=== PATIENT | male | born 1930 | race Caucasian/White ===

== ENCOUNTER 2021-03-01 15:48 | Inpatient (IN) | payer MEDICARE, BC ==
[~2021-03-01 15:48] MED LIST: Iopamidol 370 76% 100 ML VIAL ONE
[2021-03-01 16:55] LABS: #Eosinphils 0.5 thou/uL (0.0-0.7); #Lymphocytes 2.9 thou/uL (1.20-3.40); #Monocytes 1.1 thou/uL (0.11-0.59); #Neutrophils 6.8 thou/uL (1.40-6.50); %Basophils 0.2 % (0.0-1.0); %Eosinophils 4.2 % (0.0-10.0); %Lymphocytes 25.6 % (21.0-51.0); %Monocytes 9.7 % (0.0-10.0); %Neutrophils 60.3 % (42.0-75.0); Hemoglobin 12.9 g/dL (14.0-18.0); Mean Corpuscular HGB CONC 32.1 g/dL (32.0-36.0); Mean Corpuscular Hemoglobin 28.8 pg (27.0-31.0); Mean Corpuscular Volume 89.6 fL (78.0-98.0); Mean Platelet Volume 7.8 fL (7.4-10.4); Platelet Count 263 thou/uL (130-400); RBC Distribution Width 14.2 % (11.5-14.5); Red Blood Cell (RBC) Count 4.47 mill/uL (4.70-6.10); White Blood Cell (WBC) Count 11.4 thou/uL (4.8-10.8)
[2021-03-01 17:12] LABS: ALT (SGPT) Less than 7 U/L (8-55); AST (SGOT) 15 U/L (5-34); Alkaline Phosphatase 121 U/L (40-110); Anion Gap 16 mmol/L (10-20); BUN (Urea Nitrogen) 33 mg/dL (8.4-25.7); Bilirubin, Total 0.4 mg/dL (0.2-1.2); CK (CPK) 113 U/L (30-200); Calc. Creatinine Clearance 0 mL/min (70-130); Calcium 9.3 mg/dL (7.8-10.44); Carbon Dioxide 22 mmol/L (23-31); Chloride 104 mmol/L (98-107); Globulin 3.8 g/dL (2.4-3.5); Glucose 123 mg/dL (83-110); Magnesium 1.7 mg/dL (1.6-2.6); Potassium 4.4 mmol/L (3.5-5.1); Protein, Total 7.8 g/dL (5.8-8.1); Sodium 138 mmol/L (136-145)
[2021-03-01] MEDS ORDERED: Aspirin Chewable 81 MG TAB ONE (17:41)
[2021-03-01] MEDS ORDERED: Enoxaparin Sodium 100 MG/ML SYRINGE ONE (17:41)
[2021-03-01] MEDS ORDERED: cefTRIAXone\\ROCEPHIN 2 GM VIAL ONE (17:41)
[2021-03-01 17:43] LABS: CKMB 4.3 ng/mL (0-6.6)
[2021-03-01 18:22] LABS: Bacteria/HPF None Seen HPF (None Seen); Bilirubin Negative (Negative); Blood, Urine Negative (Negative); Clarity Clear (Clear); Glucose, Urine (Dipstick) Normal (Negative); Ketone, Urine Negative (Negative); Leukocyte Negative Leu/uL (Negative); Nitrite Negative (Negative); Protein, Urine (Dipstick) 30 mg/dL (Neg-Trace); RBC/HPF 0-3 HPF (0-3); Specific Gravity, Urine 1.026 (1.002-1.036); Squamous Epithelial 0-3 HPF (0-3); Urobilinogen Normal mg/dL (Less than 2); WBC/HPF 0-3 HPF (0-3)
[2021-03-01] MEDS ORDERED: Ondansetron PF 4 MG/2 ML Vial IVP PRN (20:16)
[2021-03-01] MEDS ORDERED: Dextrose 50% Abboject 50 ML SYRINGE SLOW IVP PRN (20:18)
[2021-03-01] MEDS ORDERED: Dextrose 5% in Water 1,000 ML IV PRN (20:18)
[2021-03-01] MEDS ORDERED: Aspirin 81 mg Enteric Coated Tablet PO SCH (20:45)
[2021-03-01 20:52] LABS: Critical Call Chem Troponin I RESULT DECREASING; Troponin I 1.127 ng/mL (< 0.028)
[2021-03-01] MEDS: Sodium Chloride 0.9% 1,000 ML IV SCH (22:59)
[2021-03-01 23:18] LABS: Critical Call Chem Troponin I 2NO.TB1; Troponin I 1.012 ng/mL (< 0.028)
[2021-03-02 03:03] LABS: SARS-CoV-2 NAA Rapid Test Not Detected (NotDetected)
[2021-03-02] MEDS ORDERED: Enoxaparin Sodium 120 MG/0.8 ML SYRINGE SC SCH ×2 (06:00→09:00)
[2021-03-02 06:50] LABS: #Basophils 0.1 thou/uL (0.0-0.2); #Eosinphils 0.6 thou/uL (0.0-0.7); #Lymphocytes 2.7 thou/uL (1.20-3.40); #Neutrophils 4.1 thou/uL (1.40-6.50); %Basophils 0.9 % (0.0-1.0); %Lymphocytes 32.4 % (21.0-51.0); %Monocytes 11.4 % (0.0-10.0); %Neutrophils 48.3 % (42.0-75.0); Hemoglobin 11.2 g/dL (14.0-18.0); Mean Corpuscular HGB CONC 32.4 g/dL (32.0-36.0); Mean Corpuscular Hemoglobin 29.4 pg (27.0-31.0); Mean Corpuscular Volume 90.7 fL (78.0-98.0); Mean Platelet Volume 8.2 fL (7.4-10.4); Platelet Count 183 thou/uL (130-400); RBC Distribution Width 14.3 % (11.5-14.5); Red Blood Cell (RBC) Count 3.83 mill/uL (4.70-6.10); White Blood Cell (WBC) Count 8.4 thou/uL (4.8-10.8)
[2021-03-02 07:12] LABS: Anion Gap 15 mmol/L (10-20); BUN (Urea Nitrogen) 30 mg/dL (8.4-25.7); Calc. Creatinine Clearance 55 mL/min (70-130); Calcium 8.5 mg/dL (7.8-10.44); Carbon Dioxide 19 mmol/L (23-31); Chloride 107 mmol/L (98-107); Glucose 135 mg/dL (83-110); Potassium 4.4 mmol/L (3.5-5.1); Sodium 137 mmol/L (136-145)
[2021-03-02] MEDS ORDERED: Pravastatin Sodium 40 MG TAB PO SCH (09:00)
[2021-03-02] MEDS ORDERED: Dofetilide 0.25 MG CAP PO SCH (09:00)
[2021-03-02] MEDS ORDERED: IRBESARTAN 75 MG PO SCH (09:00)
[2021-03-02] MEDS: Sodium Chloride 0.9% 1,000 ML IV SCH (09:15)
[2021-03-02] MEDS: Dofetilide 0.125 MG CAP PO SCH ×2 (09:17→19:55)
[2021-03-02] MEDS: Potassium Chloride 20 MEQ TAB PO SCH (09:17)
[2021-03-02] MEDS: Aspirin 81 mg Enteric Coated Tablet PO SCH (09:18)
[2021-03-02] MEDS: Atorvastatin Calcium 10 MG TAB PO SCH (09:18)
[2021-03-02] MEDS: Donepezil HCl 5 MG TAB PO SCH (09:18)
[2021-03-02] MEDS: Furosemide 40 MG TAB PO SCH ×2 (09:18→19:56)
[2021-03-02] MEDS: Levothyroxine Sodium 25 MCG TAB PO SCH (09:18)
[2021-03-02] MEDS: Losartan 25 MG TAB PO SCH (09:18)
[2021-03-02] MEDS: Spironolactone 25 MG TAB PO SCH (09:19)
[2021-03-02] MEDS: Clopidogrel Bisulfate 75 MG TAB PO SCH (09:19)
[2021-03-02] MEDS: Budesonide 0.5 MG/2 ML NEB NEB SCH (19:16)
[2021-03-02] MEDS: Acetaminophen 325 MG TAB PO PRN (19:56)
[2021-03-03 05:01] LABS: #Eosinphils 0.5 thou/uL (0.0-0.7); #Lymphocytes 2.6 thou/uL (1.20-3.40); #Monocytes 0.8 thou/uL (0.11-0.59); #Neutrophils 3.4 thou/uL (1.40-6.50); %Basophils 0.6 % (0.0-1.0); %Eosinophils 6.6 % (0.0-10.0); %Monocytes 11.3 % (0.0-10.0); %Neutrophils 46.5 % (42.0-75.0); Hemoglobin 11.6 g/dL (14.0-18.0); Mean Corpuscular HGB CONC 33.7 g/dL (32.0-36.0); Mean Platelet Volume 7.9 fL (7.4-10.4); Platelet Count 189 thou/uL (130-400); RBC Distribution Width 14.2 % (11.5-14.5); Red Blood Cell (RBC) Count 3.87 mill/uL (4.70-6.10); White Blood Cell (WBC) Count 7.3 thou/uL (4.8-10.8)
[2021-03-03 05:22] LABS: Anion Gap 14 mmol/L (10-20); BUN (Urea Nitrogen) 21 mg/dL (8.4-25.7); Calc. Creatinine Clearance 68 mL/min (70-130); Calcium 9.1 mg/dL (7.8-10.44); Carbon Dioxide 22 mmol/L (23-31); Chloride 106 mmol/L (98-107); Glucose 105 mg/dL (83-110); Potassium 3.7 mmol/L (3.5-5.1); Sodium 138 mmol/L (136-145)
[2021-03-03] MEDS ORDERED: Electrolyte Replacement Protocol 1 EACH FS PRN (08:15)
[2021-03-03] MEDS: Losartan 25 MG TAB PO SCH (08:24)
[2021-03-03] MEDS: Donepezil HCl 5 MG TAB PO SCH (08:24)
[2021-03-03] MEDS: Furosemide 40 MG TAB PO SCH ×2 (08:24→20:06)
[2021-03-03] MEDS: Potassium Chloride 20 MEQ TAB PO SCH (08:24)
[2021-03-03] MEDS: Clopidogrel Bisulfate 75 MG TAB PO SCH (08:25)
[2021-03-03] MEDS: Atorvastatin Calcium 10 MG TAB PO SCH (08:25)
[2021-03-03] MEDS: Aspirin 81 mg Enteric Coated Tablet PO SCH (08:25)
[2021-03-03] MEDS: Levothyroxine Sodium 25 MCG TAB PO SCH (08:25)
[2021-03-03] MEDS: Dofetilide 0.125 MG CAP PO SCH ×2 (08:25→20:06)
[2021-03-03] MEDS: Spironolactone 25 MG TAB PO SCH (08:25)
[2021-03-03] MEDS: Budesonide 0.5 MG/2 ML NEB NEB SCH ×2 (10:47→19:03)
[2021-03-03] MEDS ORDERED: Magnesium Sulfate 4 GM in Sodium Chloride 0.9% 250 ML 250 ML IVPB SCH (12:00)
[2021-03-03] MEDS ORDERED: Vancomycin 1 GM in Premix Bag 1 BAG IVPB SCH (12:00)
[2021-03-03] MEDS: Cefepime 1 GM in Sodium Chloride 0.9% 100 ML IVPB SCH (12:26)
[2021-03-03] MEDS: VANCOMYCIN 1.75 GM/350 ML BAG 1.75 GM in Premix Bag 1 BAG IVPB SCH (13:46)
[2021-03-04] MEDS: Cefepime 1 GM in Sodium Chloride 0.9% 100 ML IVPB SCH ×2 (00:25→12:34)
[2021-03-04 04:47] LABS: #Basophils 0.1 thou/uL (0.0-0.2); #Eosinphils 0.6 thou/uL (0.0-0.7); #Lymphocytes 2.4 thou/uL (1.20-3.40); #Monocytes 0.8 thou/uL (0.11-0.59); #Neutrophils 3.7 thou/uL (1.40-6.50); %Basophils 1.1 % (0.0-1.0); %Lymphocytes 31.4 % (21.0-51.0); %Neutrophils 48.6 % (42.0-75.0); Hemoglobin 12.7 g/dL (14.0-18.0); Mean Corpuscular HGB CONC 33.2 g/dL (32.0-36.0); Mean Corpuscular Hemoglobin 29.6 pg (27.0-31.0); Platelet Count 215 thou/uL (130-400); Red Blood Cell (RBC) Count 4.29 mill/uL (4.70-6.10); White Blood Cell (WBC) Count 7.6 thou/uL (4.8-10.8)
[2021-03-04 04:59] LABS: Phosphorus 3.1 mg/dL (2.3-4.7)
[2021-03-04 05:02] LABS: Anion Gap 17 mmol/L (10-20); BUN (Urea Nitrogen) 17 mg/dL (8.4-25.7); Calc. Creatinine Clearance 72 mL/min (70-130); Calcium 9.7 mg/dL (7.8-10.44); Carbon Dioxide 22 mmol/L (23-31); Chloride 103 mmol/L (98-107); Glucose 124 mg/dL (83-110); Potassium 3.8 mmol/L (3.5-5.1); Sodium 138 mmol/L (136-145)
[2021-03-04] MEDS: Budesonide 0.5 MG/2 ML NEB NEB SCH ×2 (07:37→19:41)
[2021-03-04] MEDS: Potassium Chloride 20 MEQ TAB PO SCH (08:33)
[2021-03-04] MEDS: Aspirin 81 mg Enteric Coated Tablet PO SCH (08:33)
[2021-03-04] MEDS: Dofetilide 0.125 MG CAP PO SCH ×2 (08:33→20:37)
[2021-03-04] MEDS: Levothyroxine Sodium 25 MCG TAB PO SCH (08:33)
[2021-03-04] MEDS: Atorvastatin Calcium 10 MG TAB PO SCH (08:34)
[2021-03-04] MEDS: Donepezil HCl 5 MG TAB PO SCH (08:34)
[2021-03-04] MEDS: Clopidogrel Bisulfate 75 MG TAB PO SCH (08:34)
[2021-03-04] MEDS: Spironolactone 25 MG TAB PO SCH (08:34)
[2021-03-04] MEDS: Furosemide 40 MG TAB PO SCH ×2 (08:34→20:37)
[2021-03-04] MEDS: Losartan 25 MG TAB PO SCH (08:36)
[2021-03-04] MEDS ORDERED: Magnesium 2 GM/50 ML 2 GM in Premix Bag 1 BAG IVPB SCH (08:45)
[2021-03-04] MEDS: HumaLOG 300 UNITS/3 ML VIAL SC PRN (12:33)
[2021-03-04] MEDS: VANCOMYCIN 1.75 GM/350 ML BAG 1.75 GM in Premix Bag 1 BAG IVPB SCH (13:23)
[2021-03-05] MEDS: Cefepime 1 GM in Sodium Chloride 0.9% 100 ML IVPB SCH ×2 (01:27→12:26)
[2021-03-05 04:25] LABS: #Eosinphils 0.7 thou/uL (0.0-0.7); #Lymphocytes 2.7 thou/uL (1.20-3.40); #Monocytes 1.2 thou/uL (0.11-0.59); #Neutrophils 4.9 thou/uL (1.40-6.50); %Basophils 0.5 % (0.0-1.0); %Eosinophils 7.6 % (0.0-10.0); %Lymphocytes 28.4 % (21.0-51.0); %Monocytes 12.3 % (0.0-10.0); %Neutrophils 51.3 % (42.0-75.0); Hemoglobin 13.2 g/dL (14.0-18.0); Mean Corpuscular HGB CONC 32.8 g/dL (32.0-36.0); Mean Corpuscular Hemoglobin 29.1 pg (27.0-31.0); Mean Corpuscular Volume 88.7 fL (78.0-98.0); Mean Platelet Volume 8.1 fL (7.4-10.4); Platelet Count 259 thou/uL (130-400); RBC Distribution Width 14.1 % (11.5-14.5); Red Blood Cell (RBC) Count 4.55 mill/uL (4.70-6.10); White Blood Cell (WBC) Count 9.5 thou/uL (4.8-10.8)
[2021-03-05 04:48] LABS: ALT (SGPT) Less than 7 U/L (8-55); AST (SGOT) 12 U/L (5-34); Albumin 3.9 g/dL (3.4-4.8); Alkaline Phosphatase 118 U/L (40-110); Anion Gap 15 mmol/L (10-20); BUN (Urea Nitrogen) 21 mg/dL (8.4-25.7); Bilirubin, Total 0.5 mg/dL (0.2-1.2); CRP (Inflammatory) 1.12 mg/dL (= or < 0.5); Calc. Creatinine Clearance 56 mL/min (70-130); Calcium 10.1 mg/dL (7.8-10.44); Carbon Dioxide 25 mmol/L (23-31); Chloride 102 mmol/L (98-107); Globulin 3.9 g/dL (2.4-3.5); Glucose 161 mg/dL (83-110); Magnesium 1.9 mg/dL (1.6-2.6); Potassium 3.6 mmol/L (3.5-5.1); Protein, Total 7.8 g/dL (5.8-8.1); Sodium 138 mmol/L (136-145)
[2021-03-05] MEDS ORDERED: Magnesium 2 GM/50 ML 2 GM in Premix Bag 1 BAG IVPB SCH (06:30)
[2021-03-05] MEDS: Budesonide 0.5 MG/2 ML NEB NEB SCH ×2 (07:55→19:14)
[2021-03-05] MEDS: Aspirin 81 mg Enteric Coated Tablet PO SCH (09:38)
[2021-03-05] MEDS: Clopidogrel Bisulfate 75 MG TAB PO SCH (09:38)
[2021-03-05] MEDS: Dofetilide 0.125 MG CAP PO SCH ×2 (09:38→21:16)
[2021-03-05] MEDS: Atorvastatin Calcium 10 MG TAB PO SCH (09:38)
[2021-03-05] MEDS: Potassium Chloride 20 MEQ TAB PO SCH (09:39)
[2021-03-05] MEDS: Losartan 25 MG TAB PO SCH (09:39)
[2021-03-05] MEDS: Levothyroxine Sodium 25 MCG TAB PO SCH (09:39)
[2021-03-05] MEDS: Spironolactone 25 MG TAB PO SCH (09:39)
[2021-03-05] MEDS: Donepezil HCl 5 MG TAB PO SCH (09:39)
[2021-03-05] MEDS: Furosemide 40 MG TAB PO SCH ×2 (09:39→21:16)
[2021-03-05] MEDS: Sodium Chloride 0.9% 1,000 ML IV SCH (12:26)
[2021-03-05 13:31] LABS: Vancomycin, Trough 13.5 ug/mL
[2021-03-05] MEDS ORDERED: VANCOMYCIN 2 GRAM/400 ML BAG 2 GM in Premix Bag 1 BAG IVPB SCH (14:00)
[2021-03-05] MEDS: VANCOMYCIN 1.75 GM/350 ML BAG 1.75 GM in Premix Bag 1 BAG IVPB SCH (14:18)
[2021-03-06] MEDS: Cefepime 1 GM in Sodium Chloride 0.9% 100 ML IVPB SCH (01:47)
[2021-03-06] MEDS: Sodium Chloride 0.9% 1,000 ML IV SCH (01:48)
[2021-03-06 04:38] LABS: #Basophils 0.1 thou/uL (0.0-0.2); #Eosinphils 0.9 thou/uL (0.0-0.7); #Lymphocytes 3.2 thou/uL (1.20-3.40); #Monocytes 1.3 thou/uL (0.11-0.59); #Neutrophils 5.3 thou/uL (1.40-6.50); %Basophils 0.5 % (0.0-1.0); %Eosinophils 8.8 % (0.0-10.0); %Lymphocytes 29.8 % (21.0-51.0); %Monocytes 11.8 % (0.0-10.0); %Neutrophils 49.2 % (42.0-75.0); Hemoglobin 13.4 g/dL (14.0-18.0); Mean Corpuscular HGB CONC 32.7 g/dL (32.0-36.0); Mean Corpuscular Hemoglobin 29.3 pg (27.0-31.0); Mean Corpuscular Volume 89.5 fL (78.0-98.0); Mean Platelet Volume 8.1 fL (7.4-10.4); Platelet Count 240 thou/uL (130-400); RBC Distribution Width 14.1 % (11.5-14.5); Red Blood Cell (RBC) Count 4.58 mill/uL (4.70-6.10); White Blood Cell (WBC) Count 10.8 thou/uL (4.8-10.8)
[2021-03-06] MEDS: Budesonide 0.5 MG/2 ML NEB NEB SCH ×2 (07:24→19:43)
[2021-03-06] MEDS ORDERED: Fentanyl 100 MCG/2 ML VIAL ONE (08:48)
[2021-03-06] MEDS ORDERED: PHENYLEPHRINE-NS 100 MCG/ML 10 ML SYRINGE ONE (08:53)
[2021-03-06] MEDS ORDERED: Lidocaine 1% PF 5 ML VIAL ONE (08:53)
[2021-03-06] MEDS ORDERED: Ondansetron PF 4 MG/2 ML Vial ONE (08:53)
[2021-03-06] MEDS ORDERED: PROPOFOL 200 MG/20 ML VIAL ONE (08:53)
[2021-03-06] MEDS ORDERED: Ibuprofen 600 MG TAB PO PRN (09:19)
[2021-03-06] MEDS ORDERED: Acetaminophen ER (8hr) 650 MG TAB PO ONE (12:32)
[2021-03-06] MEDS ORDERED: VANCOMYCIN 2 GRAM/400 ML BAG 2 GM in Premix Bag 1 BAG IVPB SCH (14:00)
[2021-03-06] MEDS: traMADol HCl 50 MG TAB PO PRN (14:01)
[2021-03-06] MEDS: Aspirin 81 mg Enteric Coated Tablet PO SCH (14:04)
[2021-03-06] MEDS: Atorvastatin Calcium 10 MG TAB PO SCH (14:05)
[2021-03-06] MEDS: Clopidogrel Bisulfate 75 MG TAB PO SCH (14:05)
[2021-03-06] MEDS: Dofetilide 0.125 MG CAP PO SCH ×2 (14:05→22:22)
[2021-03-06] MEDS: Donepezil HCl 5 MG TAB PO SCH (14:05)
[2021-03-06] MEDS: Levothyroxine Sodium 25 MCG TAB PO SCH (14:06)
[2021-03-06] MEDS: Losartan 25 MG TAB PO SCH (14:06)
[2021-03-06] MEDS: Furosemide 40 MG TAB PO SCH ×2 (14:06→22:22)
[2021-03-06] MEDS: Potassium Chloride 20 MEQ TAB PO SCH (14:06)
[2021-03-06] MEDS: Spironolactone 25 MG TAB PO SCH (14:07)
[2021-03-06 15:05] LABS: Albumin 3.7 g/dL (3.4-4.8)
[2021-03-06 15:06] LABS: Chloride 104 mmol/L (98-107); Sodium 139 mmol/L (136-145)
[2021-03-06 15:08] LABS: Globulin 3.7 g/dL (2.4-3.5); Glucose 186 mg/dL (83-110); Protein, Total 7.4 g/dL (5.8-8.1)
[2021-03-06 15:09] LABS: Anion Gap 16 mmol/L (10-20); Carbon Dioxide 23 mmol/L (23-31)
[2021-03-06 15:10] LABS: Bilirubin, Total 0.4 mg/dL (0.2-1.2)
[2021-03-06 15:11] LABS: Alkaline Phosphatase 112 U/L (40-110); Calc. Creatinine Clearance 50 mL/min (70-130)
[2021-03-06 15:12] LABS: BUN (Urea Nitrogen) 26 mg/dL (8.4-25.7)
[2021-03-06 15:13] LABS: AST (SGOT) 11 U/L (5-34)
[2021-03-06 15:14] LABS: ALT (SGPT) Less than 7 U/L (8-55)
[2021-03-07] MEDS: traMADol HCl 50 MG TAB PO PRN ×3 (05:09→21:02)
[2021-03-07] MEDS: Budesonide 0.5 MG/2 ML NEB NEB SCH ×2 (07:43→19:28)
[2021-03-07] MEDS: Aspirin 81 mg Enteric Coated Tablet PO SCH (08:38)
[2021-03-07] MEDS: Dofetilide 0.125 MG CAP PO SCH ×2 (08:39→20:51)
[2021-03-07] MEDS: Clopidogrel Bisulfate 75 MG TAB PO SCH (08:39)
[2021-03-07] MEDS: Atorvastatin Calcium 10 MG TAB PO SCH (08:39)
[2021-03-07] MEDS: Levothyroxine Sodium 25 MCG TAB PO SCH (08:40)
[2021-03-07] MEDS: Losartan 25 MG TAB PO SCH (08:40)
[2021-03-07] MEDS: Furosemide 40 MG TAB PO SCH (08:40)
[2021-03-07] MEDS: Donepezil HCl 5 MG TAB PO SCH (08:40)
[2021-03-07] MEDS: Spironolactone 25 MG TAB PO SCH (08:41)
[2021-03-07] MEDS: Potassium Chloride 20 MEQ TAB PO SCH (08:41)
[2021-03-07] MEDS: HumaLOG 300 UNITS/3 ML VIAL SC PRN (11:43)
[2021-03-08] MEDS: Budesonide 0.5 MG/2 ML NEB NEB SCH ×2 (07:00→18:31)
[2021-03-08 07:50] LABS: Anion Gap 15 mmol/L (10-20); BUN (Urea Nitrogen) 33 mg/dL (8.4-25.7); Calc. Creatinine Clearance 59 mL/min (70-130); Calcium 9.6 mg/dL (7.8-10.44); Carbon Dioxide 25 mmol/L (23-31); Chloride 103 mmol/L (98-107); Glucose 138 mg/dL (83-110); Potassium 4.5 mmol/L (3.5-5.1); Sodium 138 mmol/L (136-145)
[2021-03-08] MEDS: Levothyroxine Sodium 25 MCG TAB PO SCH (08:51)
[2021-03-08] MEDS: Losartan 25 MG TAB PO SCH (08:51)
[2021-03-08] MEDS: Furosemide 40 MG TAB PO SCH ×2 (08:51→21:13)
[2021-03-08] MEDS: Dofetilide 0.125 MG CAP PO SCH ×2 (08:51→21:11)
[2021-03-08] MEDS: Atorvastatin Calcium 10 MG TAB PO SCH (08:51)
[2021-03-08] MEDS: Donepezil HCl 5 MG TAB PO SCH (08:51)
[2021-03-08] MEDS: Clopidogrel Bisulfate 75 MG TAB PO SCH (08:51)
[2021-03-08] MEDS: Potassium Chloride 20 MEQ TAB PO SCH (08:52)
[2021-03-08] MEDS: Aspirin 81 mg Enteric Coated Tablet PO SCH (08:52)
[2021-03-08] MEDS: Spironolactone 25 MG TAB PO SCH (08:52)
[2021-03-08 09:21] VITALS: BMI 31.7
[2021-03-08] MEDS: HumaLOG 300 UNITS/3 ML VIAL SC PRN (11:33)
[2021-03-08] MEDS: Acetaminophen 325 MG TAB PO PRN (13:30)
[2021-03-08] MEDS: traMADol HCl 50 MG TAB PO PRN (21:17)
[2021-03-09 03:56] VITALS: TEMP 97.7
[2021-03-09] MEDS: Budesonide 0.5 MG/2 ML NEB NEB SCH (07:48)
[2021-03-09 08:14] VITALS: BP 134/63
[2021-03-09] MEDS: Donepezil HCl 5 MG TAB PO SCH (08:59)
[2021-03-09] MEDS: Atorvastatin Calcium 10 MG TAB PO SCH (08:59)
[2021-03-09] MEDS: Spironolactone 25 MG TAB PO SCH (08:59)
[2021-03-09] MEDS: Losartan 25 MG TAB PO SCH (08:59)
[2021-03-09] MEDS: Clopidogrel Bisulfate 75 MG TAB PO SCH (08:59)
[2021-03-09] MEDS: Furosemide 40 MG TAB PO SCH (08:59)
[2021-03-09] MEDS: Potassium Chloride 20 MEQ TAB PO SCH (09:00)
[2021-03-09] MEDS: Aspirin 81 mg Enteric Coated Tablet PO SCH (09:00)
[2021-03-09] MEDS: Dofetilide 0.125 MG CAP PO SCH (09:00)
[2021-03-09] MEDS: Levothyroxine Sodium 25 MCG TAB PO SCH (09:09)
== END 2021-03-09 14:25 | disposition home health service (06) | DRG 616 ==
LOC: ERS 15:48 → 2NO 20:06
PROVIDERS: ADMIT Internal Medicine; ATTEND Internal Medicine
PROC: 5A09357 Assistance with Respiratory Ventilation, Less than 24 Consecutive Hours, Continuous Positive Airway Pressure (ICD-10-PCS; 2021-03-01)
PROC: 0Y6T0Z1 Detachment at Right 3rd Toe, High, Open Approach (ICD-10-PCS; principal; 2021-03-06)
DX: E11.69 Type 2 diabetes mellitus with other specified complication (principal); I21.A1 Myocardial infarction type 2; G93.41 Metabolic encephalopathy; I13.0 Hypertensive heart and chronic kidney disease with heart failure and stage 1 through stage 4 chronic kidney disease, or unspecified chronic kidney disease; I50.42 Chronic combined systolic (congestive) and diastolic (congestive) heart failure; M86.8X7 Other osteomyelitis, ankle and foot; E83.42 Hypomagnesemia; N17.9 Acute kidney failure, unspecified; I48.0 Paroxysmal atrial fibrillation; Z66 Do not resuscitate; Z96.659 Presence of unspecified artificial knee joint; F03.90 Unspecified dementia, unspecified severity, without behavioral disturbance, psychotic disturbance, mood disturbance, and anxiety; I25.10 Atherosclerotic heart disease of native coronary artery without angina pectoris; G47.33 Obstructive sleep apnea (adult) (pediatric); E11.51 Type 2 diabetes mellitus with diabetic peripheral angiopathy without gangrene; N18.30 Chronic kidney disease, stage 3 unspecified; D63.1 Anemia in chronic kidney disease; E78.5 Hyperlipidemia, unspecified; E11.621 Type 2 diabetes mellitus with foot ulcer; M25.571 Pain in right ankle and joints of right foot; J44.9 Chronic obstructive pulmonary disease, unspecified; L97.519 Non-pressure chronic ulcer of other part of right foot with unspecified severity; N18.31 Chronic kidney disease, stage 3a; E66.9 Obesity, unspecified; Z68.31 Body mass index [BMI] 31.0-31.9, adult; Z88.1 Allergy status to other antibiotic agents; Z88.0 Allergy status to penicillin; Z88.2 Allergy status to sulfonamides; Z88.8 Allergy status to other drugs, medicaments and biological substances; Z78.1 Physical restraint status; Z86.73 Personal history of transient ischemic attack (TIA), and cerebral infarction without residual deficits; Z95.1 Presence of aortocoronary bypass graft; Z95.5 Presence of coronary angioplasty implant and graft; Z95.828 Presence of other vascular implants and grafts; Z89.421 Acquired absence of other right toe(s); Z79.899 Other long term (current) drug therapy; Z79.82 Long term (current) use of aspirin; Z79.51 Long term (current) use of inhaled steroids; Z79.890 Hormone replacement therapy; Z79.84 Long term (current) use of oral hypoglycemic drugs
CPT/HCPCS: 0240U; 36415; 36416; 51701; 70450; 70551; 71045; 71275; 80048; 80053; 80202; 81003; 81015; 82140; 82550; 82553; 83605; 83735; 83880; 84100; 84443; 84484; 85025; 86140; 87040; 87086; 87635; 88305; 88311; 93005; 93306; 94640; 96365; 96372; J0692; J0696; J1650; J1815; J2405; J2704; J3010; J3370; J3475; J3490; J7050; J7626; J8499; Q9967; U0003; U0005

== ENCOUNTER 2021-03-12 15:49 | Inpatient (IN) | payer MEDICARE, BC ==
[2021-03-12 17:22] LABS: #Basophils 0.1 thou/uL (0.0-0.2); #Eosinphils 0.1 thou/uL (0.0-0.7); #Monocytes 2.3 thou/uL (0.11-0.59); #Neutrophils 12.7 thou/uL (1.40-6.50); %Basophils 0.3 % (0.0-1.0); %Eosinophils 0.4 % (0.0-10.0); %Lymphocytes 16.3 % (21.0-51.0); %Monocytes 12.6 % (0.0-10.0); %Neutrophils 70.4 % (42.0-75.0); Hemoglobin 13.2 g/dL (14.0-18.0); Mean Corpuscular HGB CONC 31.4 g/dL (32.0-36.0); Mean Corpuscular Hemoglobin 28.3 pg (27.0-31.0); Mean Corpuscular Volume 90.1 fL (78.0-98.0); Mean Platelet Volume 8.7 fL (7.4-10.4); Platelet Count 207 thou/uL (130-400); Red Blood Cell (RBC) Count 4.66 mill/uL (4.70-6.10)
[2021-03-12 18:10] LABS: BUN (Urea Nitrogen) 80 mg/dL (8.4-25.7); Bilirubin, Total 0.6 mg/dL (0.2-1.2); Calc. Creatinine Clearance 0 mL/min (70-130); Calcium 9.1 mg/dL (7.8-10.44); Carbon Dioxide 10 mmol/L (23-31); Chloride 108 mmol/L (98-107); Glucose 127 mg/dL (83-110); Potassium 5.9 mmol/L (3.5-5.1); Sodium 138 mmol/L (136-145)
[2021-03-12 18:11] LABS: ALT (SGPT) 7 U/L (8-55); AST (SGOT) 23 U/L (5-34); Albumin 3.7 g/dL (3.4-4.8); Alkaline Phosphatase 113 U/L (40-110); CRP (Inflammatory) 16.05 mg/dL (= or < 0.5); Magnesium 1.8 mg/dL (1.6-2.6); Protein, Total 7.7 g/dL (5.8-8.1)
[2021-03-12 18:29] LABS: Anion Gap 26 mmol/L (10-20)
[2021-03-12] MEDS ORDERED: Cefepime 2 GM VIAL ONE (18:34)
[2021-03-12] MEDS ORDERED: Lorazepam 2 MG/ML VIAL ONE (19:10)
[2021-03-12] MEDS ORDERED: Morphine 4 MG/ML VIAL ONE (19:10)
[2021-03-12 19:35] LABS: Acetaminophen Less than 6.0 mcg/mL (10.0-30.0); Alcohol Less than 10 mg/dL (Less than 10); CK (CPK) 419 U/L (30-200); Salicylate Less than 8.0 mg/dL (15.0-30.0)
[2021-03-12] MEDS ORDERED: Ondansetron PF 4 MG/2 ML Vial IVP PRN (22:57)
[2021-03-12] MEDS ORDERED: Morphine 4 MG/ML VIAL SLOW IVP PRN (23:10)
[2021-03-12] MEDS ORDERED: Sodium Bicarbonate 150 MEQ in Dextrose 5% in Water 1,000 ML IV ONE (23:59)
[2021-03-13 02:02] VITALS: BMI 28.7
[2021-03-13 05:25] LABS: SARS-CoV-2 PCR by NAA Not Detected (NotDetected)
[2021-03-13 06:51] LABS: ALT (SGPT) Less than 7 U/L (8-55); AST (SGOT) 18 U/L (5-34); Albumin 3.2 g/dL (3.4-4.8); Alkaline Phosphatase 95 U/L (40-110); Anion Gap 17 mmol/L (10-20); BUN (Urea Nitrogen) 79 mg/dL (8.4-25.7); Bilirubin, Total 0.5 mg/dL (0.2-1.2); Calc. Creatinine Clearance 12 mL/min (70-130); Calcium 8.3 mg/dL (7.8-10.44); Carbon Dioxide 17 mmol/L (23-31); Chloride 109 mmol/L (98-107); Globulin 3.4 g/dL (2.4-3.5); Glucose 102 mg/dL (83-110); Potassium 5.2 mmol/L (3.5-5.1); Protein, Total 6.6 g/dL (5.8-8.1); Sodium 138 mmol/L (136-145)
[2021-03-13 16:07] VITALS: BP 103/51; TEMP 98.3
[2021-03-13] MEDS ORDERED: Sodium Chloride 0.9% 1,000 ML IV SCH (16:45)
[2021-03-13] MEDS ORDERED: cefTRIAXone\\ROCEPHIN 1 GM in Sodium Chloride 0.9% 100 ML IVPB SCH (17:00)
== END 2021-03-13 20:30 | disposition hospice, inpatient (51) | DRG 682 ==
LOC: ERS 15:49 → T4-A 22:44 → OBSVTOIN 03-13 19:20
PROVIDERS: ADMIT Internal Medicine; ATTEND Internal Medicine
DX: N17.0 Acute kidney failure with tubular necrosis (principal); G92 Toxic encephalopathy; E87.2 Acidosis; Z66 Do not resuscitate; Z51.5 Encounter for palliative care; J44.9 Chronic obstructive pulmonary disease, unspecified; I25.10 Atherosclerotic heart disease of native coronary artery without angina pectoris; F03.90 Unspecified dementia, unspecified severity, without behavioral disturbance, psychotic disturbance, mood disturbance, and anxiety; E11.22 Type 2 diabetes mellitus with diabetic chronic kidney disease; Z96.659 Presence of unspecified artificial knee joint; N18.9 Chronic kidney disease, unspecified; R79.89 Other specified abnormal findings of blood chemistry; I12.9 Hypertensive chronic kidney disease with stage 1 through stage 4 chronic kidney disease, or unspecified chronic kidney disease; I51.89 Other ill-defined heart diseases; I95.9 Hypotension, unspecified; E86.0 Dehydration; I77.9 Disorder of arteries and arterioles, unspecified; E87.6 Hypokalemia; Z20.822 Contact with and (suspected) exposure to COVID-19; I48.91 Unspecified atrial fibrillation; Z88.0 Allergy status to penicillin; Z88.2 Allergy status to sulfonamides; Z88.1 Allergy status to other antibiotic agents; Z88.8 Allergy status to other drugs, medicaments and biological substances; Z79.82 Long term (current) use of aspirin; Z79.84 Long term (current) use of oral hypoglycemic drugs; Z86.73 Personal history of transient ischemic attack (TIA), and cerebral infarction without residual deficits; Z95.1 Presence of aortocoronary bypass graft; Z89.421 Acquired absence of other right toe(s)
CPT/HCPCS: 36415; 36416; 70450; 71045; 80053; 80307; 82010; 82550; 82553; 83605; 83735; 84145; 84443; 84484; 85025; 86140; 87635; 96365; 96375; 96376; G0378; J0692; J0696; J2060; J2270; J3490; J7070; U0003; U0005